=== PATIENT | male | born 1985 | race Caucasian/White ===

== ENCOUNTER 2022-08-27 09:55 | Emergency (ER) | payer BC, SELFPAY ==
--- NOTE | ~2022-08-27 | XR_ITS ---
XR hand RT min 3V 08/27/2022 10:22 INDICATION: Dog bite. Rule out foreign body. PROCEDURE: 3 views right hand COMPARISON: No prior studies for comparison. FINDINGS: Fracture, dislocation or subluxation is not identified. There is soft tissue gas in the web between the second and third metacarpophalangeal joints, consistent with laceration. The soft tissue s appear within normal limits. No foreign bodies are identified. IMPRESSION: 1: NO ACUTE BONE OR JOINT ABNORMALITY IDENTIFIED. Reviewed, dictated and finalized at location L.
[2022-08-27 10:00] VITALS: BP 135/77; PULSE 80; RESP 16; TEMP 36.8; O2SAT 100
--- NOTE | 2022-08-27 10:07 | ED.ANIMALBIT ---
HPI - Animal Bite General Chief Complaint: Animal Bite Stated Complaint: dog bite Time Seen by Provider: 08/27/22 09:58 Source: patient Mode of arrival: ambulatory Limitations: no limitations History of Present Illness HPI narrative: Patient is a 37-year-old male who presents to the ED with report of dog bites to his bilateral hands. Patient reports he was bitten by a friend's dog in his hands. He has several puncture wounds to his dorsal surface of his right hand, 2 wounds to his thenar eminence of his right hand, and 1 puncture wound to the base of his left thumb. Dog was up-to-date on its vaccines. Patient unsure of tetanus status. He does report mild tingling to his right third digit. Related Data Allergies Allergy/AdvReac Type Severity Reaction Status Date / Time No Known Allergies Allergy Verified 08/27/22 10:05 Review of Systems Review of Systems: CONSTITUTIONAL: Denies fever, chills, or sweats. SKIN: See HPI. MUSCULOSKELETAL: See HPI. NEUROLOGIC: See HPI. All systems reviewed & are unremarkable except as noted in HPI and below Exam Narrative: GENERAL: Well appearing, well-nourished, non-toxic, in no acute distress. HEAD: Normocephalic, atraumatic. NECK: Supple. No adenopathy, no masses. RESPIRATORY: Airway patent, respirations nonlabored. CARDIOVASCULAR: Regular rate and rhythm without murmurs, rubs, or gallops. Radial pulses 2+ and equal bilaterally. MUSCULOSKELETAL: Moves all extremities. Strength/ROM intact without gross deformities. Numerous small puncture wounds to dorsal surface of right hand, some appear deeper than others. Wound to thenar eminence of right hand palmar surface, approximately 1 cm in length, somewhat gaping. 1 puncture wound to the base of left thumb palmar surface that does appear fairly deep. Minimal active bleeding. Sensation intact. Full ROM of bilateral hands/fingers. SKIN: Warm, dry, normal color. No rashes. NEURO: A&O X3. Speech clear. Cranial nerves II-XII grossly intact. Steady gait. No ataxic movements. PSYCHIATRIC: Appropriate mood and affect. Normal interaction. Course Vital Signs Vital signs: Vital Signs Temperature 98.2 F 08/27/22 10:00 Pulse Rate 80 08/27/22 10:00 Respiratory Rate 16 08/27/22 10:00 Blood Pressure 135/77 08/27/22 10:00 Pulse Oximetry 100 08/27/22 10:00 Oxygen Delivery Room Air 08/27/22 10:00 Temperature 98.2 F 08/27/22 10:00 Pulse Rate 70 08/27/22 11:12 Respiratory Rate 16 08/27/22 11:12 Blood Pressure 144/78 H 08/27/22 11:12 Pulse Oximetry 100 08/27/22 11:12 Oxygen Delivery Room Air 08/27/22 10:00 Procedures Laceration Laceration 1: Date: 08/27/22 Time: 10:40 Site: hand Side (If applicable): left Size (cm): 0.25 Description: linear Depth: simple, single layer Local Anesthetic: lidocaine 1% Amount of anesthesia used (mL): 2 Pre-repair: wound explored, irrigated and irrigated extensively ====== Skin Level ====== Skin layer closed with: nylon Size (cm): 4-0 Number of sutures: 1 Technique: simple, interrupted ====== Subcutaneous Layer ====== ====== Muscle Layer ====== ====== Tendon Layer ====== Laceration 2: Date: 08/27/22 Time: 10:45 Site: hand Side (If applicable): right Size (cm): 1 Description: linear Depth: simple, single layer Local Anesthetic: lidocaine 1% Amount of anesthesia used (mL): 4 Pre-repair: wound explored, irrigated and irrigated extensively ====== Skin Level ====== Skin layer closed with: nylon Size (cm): 4-0 Number of sutures: 2 Technique: simple, interrupted ====== Subcutaneous Layer ====== ====== Muscle Layer ====== ====== Tendon Layer ====== MDM - Animal Bite MDM Narrative Medical decision making narrative: Patient presented to ED wit
[2022-08-27] MEDS: AMOXICILLIN/CLAVULANATE K 875-125 MG TAB 1 TABLET PO (10:12)
[2022-08-27] MEDS: TETANUS,DIPHTHERIA,AC PERTUSSIS ADULT (0.5 ML) BOOSTRIX IM (10:14)
[2022-08-27] MEDS: AMPICILLIN SULB 3 GM/NS 100 ML 3 GM/100 ML VIAL IVPB (10:40)
[2022-08-27 11:12] VITALS: BP 144/78; PULSE 70; RESP 16; O2SAT 100
== END 2022-08-27 11:13 | disposition home or self-care (01) ==
PROVIDERS: Emergency Provider Physician Assistant
DX: S61.451A Open bite of right hand, initial encounter (principal); S61.052A Open bite of left thumb without damage to nail, initial encounter; Z23 Encounter for immunization; W54.0XXA Bitten by dog, initial encounter
CPT/HCPCS: 12001; 73130; 90471; 90715; 96365; 99284; A9270; J0295; J2704